=== PATIENT | female | born 1965 | race Caucasian/White ===

== ENCOUNTER 2017-02-12 19:10 | Emergency (ER) | payer SELFPAY ==
--- NOTE | ~2017-02-12 | CR58 ---
[facility] A Service of [facility] RADIOLOGY TEXT RESULTS PATIENT: JAKY ANRANJO LOCATION: [facility] : 63 UNIT #: [id number] AGE: [address]: Lydia Bob APRN SEX: F ORDER DR: [id number] [place], [place] [address] [id number] MR#: [id number] Acc #: [id number] NAME: JAKY NARANJO : 1965 SEX: F STUDY DATE/TIME: 02/12/2017 20:22 UNIT: [facility] ROOM: STUDY DESCRIPTION: CR Cervical Spine 2 or 3 Views Attending Physician: Lydia Bob A.P.R.N. Ordering Physician: Lydia Bob A.P.R.N. Primary Care Physician: Dustin Joel M.D. MEDICAL IMAGING REPORT This report is preliminary unless electronic signature is present EXAM Cervical spine, 02/12/2017. HISTORY 51-year-old female with neck pain and stiffness for 1 month. No specific injury. COMPARISON None FINDINGS Five views of the cervical spine demonstrate no acute fracture or subluxation. Vertebral body heights and alignment are normally maintained. Prevertebral soft tissues are normal. Atlantoaxial relationship normal. Cervicothoracic junction is unremarkable. There are moderate multilevel degenerative changes noted at C4-5, C5-6, and C6-7. Kifp-nw-[id number] multilevel facet degeneration. IMPRESSION 1. No acute cervical spine injury. 2. Multilevel degenerative changes, detailed above. Dictated by... Darrian Smith M.D. THIS IS AN ELECTRONICALLY VERIFIED REPORT Darrian Smith M.D. at 02/15/2017 7:19 AM SHUN/henrik TD: 02/13/2017 08:09 JOB #: [id number] [facility] A Service [facility] RADIOLOGY TEXT RESULTS PATIENT: JAKY NARANJO LOCATION: [facility] : 63 UNIT #: [id number] AGE: [address]: Lydia Bob APRN SEX: F ORDER DR: MEDICAL IMAGING REPORT Page 1 of 1 COPY
[~2017-02-12 19:10] MED LIST: ALPRAZOLAM PO; EFFEXOR PO; ONDANSETRON HCL4 MG PO; OXYCONTIN PO; PHENERGAN25 MG PO; ZOCOR20 MG PO
== END 2017-02-12 22:04 | disposition home or self-care (01) ==
LOC: CED 19:10 → CFTX 19:10
DX: S16.1XXA Strain of muscle, fascia and tendon at neck level, initial encounter (principal); F17.210 Nicotine dependence, cigarettes, uncomplicated; Z98.890 Other specified postprocedural states; Z79.899 Other long term (current) drug therapy; M62.838 Other muscle spasm; X58.XXXA Exposure to other specified factors, initial encounter
CPT/HCPCS: 72040; 96372; 99283; J1885